=== PATIENT | male | born 1940 | race Caucasian/White ===

== ENCOUNTER 2016-05-06 14:40 | Inpatient (IN) | payer OTHER ==
[~2016-05-06] VITALS: Ht 170.2 cm; Wt 81.6 kg
[2016-05-06 15:31] LABS: HEMOGLOBIN 12.9 gm/dl (14.0-17.5); RED BLOOD COUNT 4.27 M/UL (4.20-5.50); WHITE BLOOD COUNT 12.1 K/UL (4.5-11.0)
[2016-05-06] MEDS ORDERED: FUROSEMIDE20 MG PO (22:52)
[2016-05-06] MEDS ORDERED: LOSARTAN-HCTZ1 EAC1 PO (22:53)
[2016-05-06] MEDS ORDERED: IMDUR ER TAB 3030 MG PO (22:53)
[2016-05-06] MEDS ORDERED: PLAVIX 75 MG TA75 MG PO (22:53)
[2016-05-06] MEDS ORDERED: NORVASC 5 MG TAB5 MG PO (22:54)
[2016-05-06] MEDS ORDERED: LOPRESSOR 25 MG25 MG PO (22:54)
[2016-05-06] MEDS ORDERED: MUCINEX600 MG PO (22:54)
[2016-05-07 05:53] LABS: HEMOGLOBIN 12.3 gm/dl (14.0-17.5); RED BLOOD COUNT 4.12 M/UL (4.20-5.50); WHITE BLOOD COUNT 9.2 K/UL (4.5-11.0)
[2016-05-07 06:15] LABS: BUN/CREATININE RATIO 18 (0-10)
[2016-05-08 04:22] LABS: HEMOGLOBIN 12.1 gm/dl (14.0-17.5); RED BLOOD COUNT 4.03 M/UL (4.20-5.50); WHITE BLOOD COUNT 9.6 K/UL (4.5-11.0)
[2016-05-08 04:44] LABS: BUN/CREATININE RATIO 21 (0-10)
[2016-05-09 03:52] LABS: HEMOGLOBIN 12.2 gm/dl (14.0-17.5); RED BLOOD COUNT 4.11 M/UL (4.20-5.50); WHITE BLOOD COUNT 8.6 K/UL (4.5-11.0)
[2016-05-09 04:17] LABS: BUN/CREATININE RATIO 17 (0-10)
[2016-05-09] MEDS ORDERED: ASPIR 8181 MG PO (12:37)
[2016-05-09] MEDS ORDERED: LIPITOR TAB 1010 MG PO (12:39)
[2016-05-09] MEDS ORDERED: LIPITOR TAB 2020 MG PO (12:41)
[2016-05-09] MEDS ORDERED: COZAAR100 MG PO (12:48)
[2016-05-09] MEDS ORDERED: TYLENOL 325MG325 MG PO (12:52)
[2016-05-09] MEDS ORDERED: VENTOLIN/PROVE0.5 ML INH (12:55)
[2016-05-09] MEDS ORDERED: NITROSTAT 0.40.4 MG SL (13:07)
== END 2016-05-09 13:32 | disposition home or self-care (01) | DRG 251 ==
LOC: ER1 14:40 → ZEROF 17:13 → MED SURG 4 22:05 → PROG CARE 05-07 16:14 → MED SURG 4 05-07 16:14 → PROG CARE 05-08 15:35
PROVIDERS: Emergency Medicine; ADMIT Internal Medicine
PROC: 4A02XM4 Measurement of Cardiac Total Activity, External Approach (ICD-10-PCS; 2016-05-07)
PROC: 3E073KZ Introduction of Other Diagnostic Substance into Coronary Artery, Percutaneous Approach (ICD-10-PCS; 2016-05-07)
PROC: 02703ZZ Dilation of Coronary Artery, One Artery, Percutaneous Approach (ICD-10-PCS; principal; 2016-05-08)
DX: T82.855A Stenosis of coronary artery stent, initial encounter (principal); I25.10 Atherosclerotic heart disease of native coronary artery without angina pectoris; E87.6 Hypokalemia; I10 Essential (primary) hypertension; J44.9 Chronic obstructive pulmonary disease, unspecified; J60 Coalworker's pneumoconiosis; R11.2 Nausea with vomiting, unspecified; D64.9 Anemia, unspecified; Z87.891 Personal history of nicotine dependence; Z88.5 Allergy status to narcotic agent; Z79.899 Other long term (current) drug therapy; Z79.2 Long term (current) use of antibiotics; Z82.49 Family history of ischemic heart disease and other diseases of the circulatory system; Z80.1 Family history of malignant neoplasm of trachea, bronchus and lung; I95.9 Hypotension, unspecified; Z98.890 Other specified postprocedural states
CPT/HCPCS: ECHO; 36415; 70450; 71010; 78452; 80048; 80053; 81001; 82550; 82553; 83735; 83874; 84132; 84484; 85025; 85027; 85347; 92920; 93005; 93017; 93306; 94640; 94664; 99285; A9502; C1725; C1769; C1887; G0378; J0461; J0583; J1644; J2250; J2785; J3010; J7030; J7040; Q9963